=== PATIENT | male | born 1995 | race African-American/Black ===

== ENCOUNTER 2016-09-23 09:20 | Emergency (ER) | payer MEDICAID ==
[~2016-09-23] VITALS: Ht 175.3 cm; Wt 78.1 kg
[2016-09-23 09:22] VITALS: BP 142/71
[2016-09-23] MEDS ORDERED: KETOROLAC 30 MG/1 ML ONE (11:21)
[2016-09-23] MEDS ORDERED: KETOROLAC 30 MG/1 ML IM ONE (11:30)
== END 2016-09-23 12:03 | disposition home or self-care (01) ==
LOC: ED 10:53
DX: S93.601A Unspecified sprain of right foot, initial encounter (principal); X58.XXXA Exposure to other specified factors, initial encounter; Y93.89 Activity, other specified; Y99.8 Other external cause status; Y92.830 Public park as the place of occurrence of the external cause
CPT/HCPCS: 73610; 73630; 96372; 99284; J1885